=== PATIENT | female | born 1985 | race Caucasian/White ===

== ENCOUNTER 2018-09-18 06:47 | Day surgery (SDC) | payer MEDICAID ==
--- NOTE | 2018-09-17 23:14 | PREOPHP ---
DATE OF ADMISSION: 09/18/2018 HISTORY OF PRESENT ILLNESS: Ms. Sandi Caal is a 33-year-old 6, para 5, desires permanent surgical sterilization. PAST MEDICAL HISTORY: None. MEDICATIONS: None. PAST SURGICAL HISTORY: None. OBSTETRICAL HISTORY: x3 vaginal delivery, last delivery was in June of 2018 x 3 missed abortions . GYNECOLOGIC HISTORY: 10, regular 3 to 4 days. Denies any sexually transmitted disease. Sexually ac tive with 1 partner. SOCIAL HISTORY: Denies any smoking, drugs or alcohol. FAMILY HISTORY: None. REVIEW OF SYSTEMS: All within normal except history of present illness. PHYSICAL EXAMINATION: HEENT: Within normal. LUNGS: CTA bilateral. CARDIOVASCULAR: S1, S2, regular rhythm. ABDOMEN: Soft, nontender, negative distention. EXTREMITIES: Negative edema. No calf tenderness. VAGINAL: Normal external genitalia. Cervix negative. CMT negative lesions. Adnexa negative mass, nontender bilateral. Fundus within normal limits. ASSESSMENT: Multiparity, desires permanent surgical sterilization. PLAN: Consent for a laparoscopic bilateral tubal sterilization. Risks, benefits and alternatives ex plained. All questions were answered. Dictated By: EDGAR DUNCAN/ROSALES Conf#: [id number] DID#: [id number]
[~2018-09-18] VITALS: Ht 144.8 cm; Wt 53.0 kg
[2018-09-18] VITALS (14 sets, daily range): BP systolic 107–165; BP diastolic 70–98; PULSE 75–130; RESP 13–24; Ht 144.8 cm; Wt 53.0 kg
--- NOTE | 2018-09-18 08:07 | PREAC ---
Date/Time of Note Date/Time of Note DATE: 09/18/18 TIME: 08:05 Anesthesia Eval and Record Evaluation Time Pre-Procedure Interview DATE: 09/18/18 TIME: 08:05 Age 33 Sex female NPO: 8 hrs Preoperative diagnosis sterilization Planned procedure bilateral tubal ligation Past Medical History Past Medical History: None Surgery & Anesthesia Issues No known issue Meds Anticoagulation: No Beta Jeffrey within 24 hr: No Reason Beta Jeffrey not given: Pt. not on B-Jeffrey No Active Prescriptions or Reported Meds Meds reviewed: Yes Allergies Coded Allergies: No Known Allergy (Unverified , 09/18/18) Allergies Reviewed: Yes Labs/Studies Labs Reviewed: Reviewed by anesthesiologist Result Diagram: 09/18/18 0717 Laboratory Tests 09/18/18 07:17 test: Negative Pre-procedure Exam Last vitals Vital Signs Date Temp Pulse Resp B/P (MAP) Pulse Ox O2 O2 Flow FiO2 Time Delivery Rate 09/18/18 98.3 75 18 107/76 99 Room Air 06:40 (86) Airway: Adequate mouth opening, Adequate thyromental dist Mallampati: Mallampati I Teeth: Normal Lung: Normal Heart: Normal ASA Physical Status ASA physical status: 1 Emergency: None Pre-operative Attestations Prior to commencing anesthesia and surgery, the patient was re-evaluated, there was verification of: *The patient's identity *The results of appropriate recent lab work and preoperative vital signs *The above evaluation not changing prior to induction *Anesthetic plan, risk benefits, alternative and complications discussed with patient/family; questions answered; patient/family understands, accepts and wishes to proceed. IDA MO DO Sep 18, 2018 08:07
[2018-09-18] MEDS ORDERED: MIDAZOLAM 1 MG/ML 2 ML INJ ONE (08:13)
[2018-09-18] MEDS ORDERED: PROPOFOL 20 ML ONE (08:13)
[2018-09-18] MEDS ORDERED: SUCCINYLCHOLINE CHLORIDE 100 MG/5 ML SYG IV ONE (08:13)
[2018-09-18] MEDS ORDERED: ROCURONIUM 50 MG INJ ONE (08:13)
[2018-09-18] MEDS ORDERED: LIDOCAINE 1% (MDV) 20 ML INJ ONE (08:13)
[2018-09-18] MEDS ORDERED: ROPIVACAINE 0.5 % 30 ML VIAL ONE (08:16)
[2018-09-18] MEDS ORDERED: ONDANSETRON 4 MG INJ IV PRN (08:30)
[2018-09-18] MEDS ORDERED: CEFAZOLIN 1 GM INJ ONE (08:30)
[2018-09-18] MEDS ORDERED: HYDROmorphONE 1 MG/5 ML IV SYRINGE IV PRN ×2 (08:30)
[2018-09-18] MEDS ORDERED: OXYCODONE/ACETAMINOPHEN (5/325) TAB PO PRN ×2 (08:30)
[2018-09-18] MEDS ORDERED: DEXAMETHASONE 4 MG/ML 5 ML INJ ONE (08:34)
[2018-09-18] MEDS ORDERED: ONDANSETRON 4 MG INJ ONE (08:34)
[2018-09-18] MEDS ORDERED: NEOSTIGMINE 10 MG INJ ONE (09:02)
[2018-09-18] MEDS ORDERED: GLYCOPYRROLATE 0.4 MG INJ ONE (09:02)
--- NOTE | 2018-09-18 09:03 | OPPN ---
Date/Time of Note Date/Time of Note DATE: 09/18/18 TIME: 09:02 Operative Report Planned Procedure Procedure date Sep 18, 2018 Procedure(s) laparoscopic bilateral tubal fulguration Performed by see signature line Program Management Intern: EDGAR WHEELER MD 2nd Program Management Intern none Anesthesiologist: IDA MO DO Pre-procedure diagnosis Multiparity, desires permanent surgical sterilization. [id number] Anesthesia Type: Yocbx5f general Post-Procedure Post-procedure diagnosis same Findings normal uterus tubes and ovaries Estimated Blood Loss: minimal Specimen(s) none Grafts/Implant(s) none Complication(s) none EDGAR WHEELER MD Sep 18, 2018 09:03
--- NOTE | 2018-09-18 09:04 | PD.PPDC ---
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
--- NOTE | 2018-09-18 09:59 | OPR ---
DATE OF OPERATION: 09/18/2018 PRIMARY DIAGNOSIS: Multiparity, desires permanent surgical sterilization. POSTOPERATIVE DIAGNOSIS: Multiparity, desires permanent surgical sterilization. PROCEDURE PERFORMED: Laparoscopic bilateral tubal fulguration. SURGEON: Edgar Wood MD. WIND FARM DESIGNER: None. ANESTHESIA: General. COMPLICATIONS: None. ESTIMATED BLOOD LOSS: Minimal. FINDINGS: Normal uterus, tubes and ovaries. DESCRIPTION OF PROCEDURE: The patient had consent and signed in the chart. After explaining risks, benefits and alternatives, the patient was taken to the operating room where general anesthesia was o btained without difficulty. The patient was then examined under anesthesia and found to have a small anteverted uterus with normal adnexa. She was then placed in dorsal lithotomy position and prepared and draped in normal sterile fashion. A heavy weighted speculum was then placed in the patient's va xiomara and the anterior lip of the cervix was grasped with a single tooth tenaculum. A HUMI uterine ma nipulator was then advanced into the uterus to provide means to manipulate the uterus. The speculum was then removed from the vagina. Attention was then turned to the patient's abdomen, where a 5 mm s kin incision was made in the umbilical fold. The Veress needle was carefully introduced into the per itoneal cavity at 45-degree angle while tenting the abdominal wall. Intraperitoneal placement was co nfirmed by use of water-filled syringe and drop in intraabdominal pressure with insufflation of CO2 g as. The trocar and sleeve were then advanced without difficulty into the abdomen, and intra-abdomina l placement was confirmed by laparoscope. Pneumoperitoneum was obtained with 4 liters of CO2 gas and a 5 mm trocar and sleeve were then advanced without difficulty into the abdomen, where intra-abdomin al placement was confirmed by laparoscope. A second skin incision was made 2 cm above the symphysis pubis in the midline. The second trocar and sleeve were then advanced under direct visualization. A survey of the patient's pelvis and abdomen revealed entirely normal anatomy. At this point, the rig ht and left fallopian tube were fulgurated at multiple areas of the ampullary isthmus area with good blanching. At this point, the instruments were removed from the patient's abdomen and the incision w as repaired with 3-0 Vicryl. The HUMI was then removed from the vagina with no bleeding noted from t he cervix. The patient tolerated procedure well. All counts were correct. The patient was taken to recovery room in stable condition. Dictated By: EDGAR DUNCAN/ROSALES Conf#: [id number] DID#: [id number]
--- NOTE | 2018-09-18 10:32 | PAC ---
Date/Time of Note Date/Time of Note DATE: 09/18/18 TIME: 10:32 Post-Anesthesia Notes Post-Anesthesia Note Last documented vital signs Vital Signs Date Temp Pulse Resp B/P (MAP) Pulse Ox O2 O2 Flow FiO2 Time Delivery Rate 09/18/18 97.0 84 18 121/70 100 10:14 (87) 09/18/18 Room Air 10:02 Activity: WNL Respiratory function: WNL Cardiovascular function: WNL Mental status: Baseline Pain reasonably controlled: Yes Hydration appropriate: Yes Nausea/Vomiting absent: Yes IDA MO DO Sep 18, 2018 10:32
== END 2018-09-18 11:30 | disposition home or self-care (01) ==
LOC: SDS 06:47
PROVIDERS: ATTEND Obstetrics & Gynecology
DX: Z30.2 Encounter for sterilization (principal)
CPT/HCPCS: 58670; 84702; 85025; 86850; 86900; 86901; J0690; J1100; J1170; J2250; J2405; J2710; J2795; J3010; Z7512; Z7610